=== PATIENT | male | born 1975 | race Caucasian/White ===

== ENCOUNTER 2017-12-17 05:54 | Emergency (ER) | payer MEDICAID ==
[~2017-12-17] VITALS: Ht 152.4 cm; Wt 72.6 kg
[2017-12-17 05:58] VITALS: BP_SYST 144
[2017-12-17] MEDS: NACL 0.9% 1,000 ML IV ONE ×2 (06:32→08:09)
[2017-12-17] MEDS: MORPHINE 4 MG/ML INJ. SYRINGE IVP ONE (06:35)
[2017-12-17] MEDS ORDERED: MORPHINE 4 MG/ML INJ. SYRINGE IVP ONE (07:15)
[2017-12-17] MEDS ORDERED: MORPHINE SULFATE 10 MG/ML VIAL ONE (07:19)
[2017-12-17 07:23] LABS: BILIRUBIN,URINE NEGATIVE (NEGATIVE); BLOOD, URINE 3+ (NEGATIVE); CLARITY/URINE CLEAR (CLEAR); GLUCOSE,URINE NEGATIVE (NEGATIVE); KETONES,URINE NEGATIVE (NEGATIVE); LEUKOCYTE ESTERASE ,URINE NEGATIVE (NEGATIVE); NITRITE, URINE NEGATIVE (NEGATIVE); PH,URINE 5.5 (5.0-8.0); PROTEIN URINE NEGATIVE (NEGATIVE); UROBILINOGEN,URINE 0.2 (0.2-1.0)
[2017-12-17] MEDS: MORPHINE SULFATE 10 MG/ML VIAL IVP ONE (07:25)
[2017-12-17 07:28] LABS: COLOR,URINE YELLOW (YELLOW)
[2017-12-17 07:30] LABS: BASOPHILS % (AUTO) 0.5 % (0.0-2.0); EOSINOPHILS # (AUTO) 0.1 K/uL (0.0-0.4); EOSINOPHILS % (AUTO) 1.5 % (0.0-4.0); HEMATOCRIT 46.6 % (36-54); HEMOGLOBIN 15.3 g/dL (14.0-18.0); LYMPHOCYTES # (AUTO) 1.7 K/uL (1.0-5.5); LYMPHOCYTES % (AUTO) 30.4 % (20.5-51.5); MEAN CORPUSCULAR HEMOGLOBIN 31 pg (27-31); MEAN CORPUSCULAR HGB CONC 33 % (32-36); MEAN CORPUSCULAR VOLUME 94 fL (79.0-98.0); MONOCYTES # (AUTO) 0.4 K/uL (0.0-1.0); MONOCYTES % (AUTO) 7.9 % (1.7-9.3); NEUTROPHILS # (AUTO) 3.5 K/uL (1.8-7.7); NEUTROPHILS % (AUTO) 59.7 % (40.0-70.0); PLATELET COUNT (AUTO) 267 K/uL (130-430); RED BLOOD CELL COUNT(AUTO) 4.98 MIL/uL (4.2-6.2); RED CELL DISTRIBUTION WIDTH 12.7 % (9.0-15.0); WHITE BLOOD COUNT (AUTO) 5.7 K/uL (4.8-10.8)
[2017-12-17 07:36] LABS: CALCIUM 8.9 mg/dL (8.4-11.0); CREATININE 1.01 mg/dL (0.55-1.30); POTASSIUM 3.2 mmol/L (3.5-5.1)
[2017-12-17 07:41] LABS: PROTHROMBIN TIME 9.9 SECS (9.5-12.5)
[2017-12-17 07:42] LABS: BACTERIA,URINE FEW /HPF (None Seen); WBC,URINE 0-3 /HPF (0-3)
[2017-12-17 07:43] LABS: MUCUS,URINE None Seen /LPF (None Seen)
[2017-12-17 07:48] LABS: TOTAL BILIRUBIN 0.3 mg/dL (0.0-1.0)
[2017-12-17] MEDS: POTASSIUM CHLORIDE 20 MEQ/PKT PACKET PO ONE (08:43)
[2017-12-17 08:50] VITALS: BP_SYST 132
== END 2017-12-17 08:50 | disposition home or self-care (01) ==
LOC: SED 05:54
DX: N20.1 Calculus of ureter (principal); E87.6 Hypokalemia
CPT/HCPCS: 36415; 74176; 80053; 81000; 82150; 83690; 85025; 85610; 85730; 96361; 96374; 96376; 99285; J2270 ×2; J7030